=== PATIENT | female | born 1955 | race Caucasian/White ===

== ENCOUNTER 2016-12-29 09:26 | Emergency (ER) | payer OTHER ==
[~2016-12-29] VITALS: Wt 85.9 kg
--- NOTE | 2016-12-29 09:59 | ERD ---
ER Documentation Chief Complaint Chief Complaint sent by pmd hg 7 HPI Patient is a 61-year-old female with pancytopenia that is in the process of being worked up since June. She had a hemoglobin of 10.1 in June, 9.2 in September, and 7.5 one week ago. She was told to come to the emergency department a week ago by a physician's certified physician assistant who saw her in the primary care clinic. The patient had previously been referred to an oncologist for workup of pancytopenia , but the oncologist moved to a different hospital, and she was not able to follow-up. She currently has an appointment on January [address] Reed. The patient denies dark stools, vaginal bleeding, dizziness, shortness of breath or fatigue. The patient has lab test results that showed normal iron panel, including iron, ferritin and percent saturation. ROS All systems reviewed and are negative except as per history of present illness. Medications Home Meds Reported Medications Ferrous Sulfate* (Ferrous Sulfate*) 325 Mg Tabec, 325 MG PO DAILY, TAB 12/29/16 Glipizide* (Glipizide*) 10 Mg Tablet, 10 MG PO BID, TAB 12/29/16 Losartan Potassium* (Losartan Potassium*) 100 Mg Tablet, 100 MG PO DAILY, TAB 12/29/16 Metformin* (Glucophage*) 1,000 Mg Tablet, 1000 MG PO BID, #60 TAB 12/29/16 Allergies Allergies: Coded Allergies: Penicillins (Verified Allergy, Severe, 12/29/16) PMhx/Soc Past medical history: Diabetes mellitus, hypertension, pancytopenia Past surgical history: Denies Social history: Denies tobacco, alcohol or illicit drugs. FmHx Noncontributory, no history of hematologic disease in the family Physical Exam Vitals Vital Signs Date Time Temp Pulse Resp B/P Pulse Ox O2 Delivery O2 Flow Rate FiO2 12/29/16 11:24 52 16 153/63 99 Room Air 12/29/16 09:28 97.7 66 20 198/79 99 Physical Exam Const: Alert, no acute distress Head: Atraumatic Eyes: Normal Conjunctiva, Mild pallor, no icterus ENT: Normal External Ears, Nose and Mouth. Neck: Full range of motion. No meningismus. Resp: Clear to auscultation bilaterally Cardio: Regular rate and rhythm, no murmurs Abd: Soft, non tender, non distended. Rectal: Guaiac negative brown stool with positive control Skin: No petechiae or rashes Back: No midline or flank tenderness Ext: No cyanosis, or edema Neur: Awake and alert Psych: Normal Mood and Affect Result Diagram: 12/29/16 1012 12/29/16 1012 Results 24 hrs Laboratory Tests Test 12/29/16 10:12 White Blood Count 2.810^3/ul Red Blood Count 2.5010^6/ul Hemoglobin 8.9g/dl Hematocrit 26.2% Mean Corpuscular Volume 104.8fl Mean Corpuscular Hemoglobin 35.6pg Mean Corpuscular Hemoglobin Concent 34.0g/dl Red Cell Distribution Width 14.9% Platelet Count 2510^3/UL Mean Platelet Volume 11.3fl Neutrophils % % Segmented Neutrophils % (Manual) 45% Band Neutrophils % (Manual) 3% Lymphocytes % % Lymphocytes % (Manual) 43% Monocytes % % Monocytes % (Manual) 6% Eosinophils % % Basophils % % Plasma Cells % (manual) 2% Nucleated Red Blood Cells % 2% Neutrophils # 10^3/ul Neutrophils # (Manual) 1.310^3/ul Band Neutrophils # 0.010^3/ul Absolute Lymphocytes (Manual) 1.210^3/ul Lymphocytes # 10^3/ul Monocytes # 10^3/ul Absolute Monocytes (Manual) 0.110^3/ul Eosinophils # 10^3/ul Basophils # 10^3/ul Plasma Cells # (manual) 0.010^3/ul Nucleated Red Blood Cells # 10^3/ul Platelet Estimate SIG DECREASED Giant Platelets 1% Platelet Morphology Comment @See below Polychromasia 3+ Anisocytosis 1+ Macrocytosis 1+ Sodium Level 143mmol/L Potassium Level 3.8mmol/L Chloride Level 104mmol/L Carbon Dioxide Level 29mmol/L Anion Gap 14 Blood Urea Nitrogen 14mg/dl Creatinine 0.74mg/dl Glucose Level 175mg/dl Calcium Level 9.2mg/dl Procedures/MDM MDM: Patient is a 61-year-old female with known pancytopenia since June 2016. She is awaiting consultation with a broadband technician for further workup. She denies any symptoms or signs of blood loss. She came to the ER because she was found to have a low hemoglobin one week ago on routine outpatient laboratory testing. Her hemoglobin in the ER is 8.9. This is not significantly changed since September 2016. She does not meet criteria for blood transfusion. She is negative guaiac. She is stable for further workup as an outpatient, and was asked to follow closely with her PMD. Departure Diagnosis: Primary Impression: Pancytopenia Condition: Stable DONA WHITEHEAD MD Dec 29, 2016 09:59
[2016-12-29] MEDS ORDERED: LOSA100T7 PO (10:33)
[2016-12-29] MEDS ORDERED: GLIP-95 PO (10:33)
[2016-12-29] MEDS ORDERED: MTF1000T PO (10:33)
[2016-12-29] MEDS ORDERED: FER325 PO (10:34)
[2016-12-29 11:24] VITALS: BP 153/63; PULSE 52; RESP 16
== END 2016-12-29 12:39 | disposition home or self-care (01) ==
LOC: E/R 09:26
DX: D61.818 Other pancytopenia (principal); I10 Essential (primary) hypertension; E11.9 Type 2 diabetes mellitus without complications; Z79.84 Long term (current) use of oral hypoglycemic drugs
CPT/HCPCS: 80048; 85025; 86850; 86900; 86901; 99284